=== PATIENT | male | born 1950 | race Caucasian/White ===

== ENCOUNTER 2024-03-09 17:17 | Emergency (ER) | payer OTHER ==
[2024-03-09] MEDS ORDERED: MORPHINE 4 MG/ML SYR ONE (18:28)
[2024-03-09] MEDS ORDERED: TRANEXAMIC ACID 1,000 MG/10 ML VIAL IV ONE ×2 (18:29→18:38)
[2024-03-09 18:40] LABS: Absolute Basophils 0.1 K/uL (0-0.5); Absolute Eosinophils 0.2 K/uL (0-0.5); Absolute Lymphocytes (CBC) 2.1 K/uL (0.7-4.9); Absolute Monocytes 0.6 K/uL (0.1-1.3); Absolute Neutrophil 3.8 K/uL (1.8-8.0); Basophils % 1.1 % (0-1.3); Eosinophils % 2.2 % (0-4.4); Hematocrit 43.1 % (39.6-49.0); MCH 27.7 pg (27.0-35.0); MCHC 32.5 g/dL (32.0-36.0); MCV 85.2 fL (80-100); MPV 9.6 fL (7.6-11.3); Monocytes % 9.5 % (3.3-12.3); Neutrophils % 56.2 % (41.7-73.7); Nucleated Red Blood Cells % 0.1 % (0-0); Platelets 186 thou/uL (152-406); RBC Red Blood Cell Count 5.06 M/uL (4.33-5.43); Red Cell Distribution Width 15.3 % (12.1-15.2)
[2024-03-09] MEDS ORDERED: SILVER NITRATE 1 APPL TOP ONE (18:44)
[2024-03-09 18:55] LABS: Anion Gap 5.1 mEq/L (5.0-15.0); Potassium 4.1 mEq/L (3.5-5.1)
--- NOTE | 2024-03-09 18:59 | ER ---
Nurse's Notes [facility] Name: Alfonso Calabrese Age: 74 yrs Sex: Male : 1950 Arrival Date: 03/09/2024 Time: 17:17 Bed 10 Private MD: Diagnosis: FACIAL WOUND BLEEDING Presentation: 03/09 17:30 Chief complaint: Patient states: pt had some skin cancer removed from his face asSaturday and today it started bleeding and they haven't been able to get it to stop. Coronavirus screen: At this time, the client does not indicate any symptoms associated with coronavirus-19. Ebola Screen: No symptoms or risks identified at this time. Initial Sepsis Screen: Does the patient meet any 2 criteria? No. Patient's initial sepsis screen is negative. Does the patient have a suspected source of infection? No. Patient's initial sepsis screen is negative. Risk Assessment: Do you want to hurt yourself or someone else? Patient reports no desire to harm self or others. Onset of symptoms was March 09, 2024. 17:30 Method Of Arrival: Wheelchair as6 17:30 Acuity: JANET 2 aa5 Historical: - Allergies: 17:31 No Known Allergies; as6 - PMHx: 17:31 Cerebrovascular accident; as6 - PSHx: 17:31 hip; Stented artery; as6 - Immunization history:: Adult Immunizations up to date. - Infectious Disease History:: Denies. - Social history:: Smoking status: Reported history of juuling and/or vaping. Screenin:34 [facility] ED Fall Risk Assessment (Adult) History of falling in the last 3 months, me1 including since admission No falls in past 3 months (0 pts) Confusion or Disorientation No (0 pts) Intoxicated or Sedated No (0 pts) Impaired Gait Yes (1 pt) Mobility Assist Device Used Yes (1 pt) Altered Elimination No (0 pt) Score/Fall Risk Level 0 - 2 = Low Risk Maintained a safe environment, Provided non-skid footwear, Hourly rounding (assess needs \T\ fall precautionary measures) done. Abuse screen: Denies threats or abuse. Nutritional screening: No deficits noted. Tuberculosis screening: No symptoms or risk factors identified. Assessment: 18:34 General: Appears uncomfortable, well groomed, well developed, well nourished, Behavior me1 is calm, cooperative, appropriate for age, had skin cancer removed from right face on Saturday and it started bleeding today. Cant get the bleeding to stop. . Pain: Complains of pain in right cheek Pain does not radiate. Pain currently is 10 out of 10 on a pain scale. Quality of pain is described as sharp, Pain began gradually, day Is continuous. Neuro: Level of Consciousness is awake, alert, obeys commands, Oriented to person, place, time, situation, Appropriate for age. Cardiovascular: Capillary refill < 3 seconds Patient's skin is warm and dry. Respiratory: Airway is patent Respiratory effort is even, unlabored, Respiratory pattern is regular, symmetrical. GI: No signs and/or symptoms were reported involving the gastrointestinal system. : No signs and/or symptoms were reported regarding the genitourinary system. EENT: No signs and/or symptoms were reported regarding the EENT system. Derm: Wound noted right cheek Wound is surgical wound. Skin cancer removed on Saturday. Musculoskeletal: No signs and/or symptoms reported regarding the musculoskeletal system. Vital Signs: 17:30 BP 137 / 96; Pulse 64; Resp 18 S; Temp 98.4; Pulse Ox 96% on R/A; Weight 107.05 kg (R); as6 Height 6 ft. 2 in. (R); Pain 0/10; 18:15 BP 168 / 88; Pulse 67; Resp 18; Pulse Ox 97% on R/A; me1 18:58 BP 169 / 92; Pulse 61; Resp 18; Pulse Ox 100% on R/A; me1 19:15 BP 161 / 83; Pulse 59; Resp 16; Pulse Ox 96% on R/A; me1 17:30 Body Mass Index 30.30 (107.05 kg, 187.96 cm) as6 17:30 Pain Scale: Adult as6 ED Course: 17:18 Patient arrived in ED. mr 17:26 Arcelia Louie MD is Attending Physician. gb1 17:30 Arm band placed on. as6 17:31 Triage completed. as6 17:38 Caro Walker, RN is Primary Nurse. me1 18:32 CBC with Diff Sent. me1 18:32 BMP Sent. me1 18:33 Initial lab(s) drawn, by me, sent to lab. Inserted saline lock: 20 gauge in left me1 antecubital area, using aseptic technique. 18:34 Patient has correct armband on for positive identification. Bed in low position. Call tx1 light in reach. Side rails up X 1. Provided Education on: POC. Verbalized understanding. . Client placed on continuous cardiac and pulse oximetry monitoring. NIBP monitoring applied. Pulse ox on. NIBP on. 18:34 No provider procedures requiring assistance completed. me1 19:25 IV discontinued, intact, bleeding controlled, No redness/swelling at site. Pressure tx1 dressing applied. Administered Medications: 18:33 Drug: morphine IVP or IV 4 mg IVP once over 4 mins Route: IVP; Infused Over: 4 mins; tx1 Site: left antecubital; 18:58 Follow up: Response: No adverse reaction; Pain is decreased me1 18:33 Drug: morphine IVP or IV 4 mg IVP once over 4 mins Route: IVP; Infused Over: 4 mins; tx1 Site: left antecubital; 18:58 Follow up: Response: No adverse reaction; Pain is decreased me1 18:58 Drug: tranexamic acid 2 vials Topical once; to wound {Note: Administered by Dr reji Louie.} Route: Topical; Site: face; 18:59 Follow up: Response: No adverse reaction; Marked relief of symptoms me1 19:08 Not Given (Hemodynamic Parameters): silver nitrate applicators1 application Topical oncegb1 Medication: 18:34 VIS not applicable for this client. me1 Outcome: 18:58 Discharge ordered by . gb1 19:25 Discharged to home ambulatory, with family, me1 19:25 Condition: stable 19:25 Discharge instructions given to patient, family, Instructed on discharge instructions, follow up and referral plans. Demonstrated understanding of instructions, follow-up care, 19:25 Patient left the ED. me1 Signatures: Adriana Crews, Ezra Reg mr Harleen Mcadams, RN RN [id number] Mike Dockery RN RN as6 Caro Walker RN RN 1 Arcelia Louie MD MD gb1 Corrections: (The following items were deleted from the chart) 18:16 17:30 Acuity: JANET 4 as6 aa5 18:57 17:30 Acuity: JANET 3 aa5 aa5 18:59 18:59 Silver Nitrate Applicators Topical 1 application Topical in face tx1 [facility] [place] 18:59 Silver Nitrate Applicators Topical 1 application Topical in face; Administered by emelyn Louie [facility] [place] 18:59 Response: No adverse reaction; Marked relief of symptoms tx1 emelyn
--- NOTE | 2024-03-09 18:59 | EDPHYS ---
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 Today when he was doing nothing it started to bleed has been no trauma to the surgical area. His surgeon is at the [facility] in [place]. The patient is set to be evaluated for a flap procedure on at the [facility]. The wound is still actively bleeding in the lower right hand section of the wound.. Historical: - Allergies: 17:31 No Known Allergies; as6 - PMHx: 17:31 Cerebrovascular accident; as6 - PSHx: 17:31 hip; Stented artery; as6 - Immunization history:: Adult Immunizations up to date. - Infectious Disease History:: Denies. - Social history:: Smoking status: Reported history of juuling and/or vaping. Exam: 19:01 Constitutional: This is a well developed, well nourished patient who is awake, alert, gb1 and in no acute distress. Head/Face: There is a large 2 inch x 2-1/2 inch open wound to the right buccal area. There is an active slow venous bleed from an area of tissue/wound dehiscence. There is no sign of erythema or fluctuance or induration at the wound site. Eyes: Pupils equal round and reactive to light, extra-ocular motions intact. Lids and lashes normal. Conjunctiva and sclera are non-icteric and not injected. Cornea within normal limits. Periorbital areas with no swelling, redness, or edema. ENT: Nares patent. No nasal discharge, no septal abnormalities noted. Tympanic membranes are normal and external auditory canals are clear. Oropharynx with no redness, swelling, or masses, exudates, or evidence of obstruction, uvula midline. Mucous membranes moist. Neck: Trachea midline, no thyromegaly or masses palpated, and no cervical lymphadenopathy. Supple, full range of motion without nuchal rigidity, or vertebral point tenderness. No Meningismus. Chest/axilla: Normal chest wall appearance and motion. Nontender with no deformity. No lesions are appreciated. Cardiovascular: Regular rate and rhythm with a normal S1 and S2. No gallops, murmurs, or rubs. Normal PMI, no JVD. No pulse deficits. Respiratory: Lungs have equal breath sounds bilaterally, clear to auscultation and percussion. No rales, rhonchi or wheezes noted. No increased work of breathing, no retractions or nasal flaring. Abdomen/GI: Soft, non-tender, with normal bowel sounds. No distension or tympany. No guarding or rebound. No evidence of tenderness throughout. MS/ Extremity: Pulses equal, no cyanosis. Neurovascular intact. Full, normal range of motion. Vital Signs: 17:30 BP 137 / 96; Pulse 64; Resp 18 S; Temp 98.4; Pulse Ox 96% on R/A; Weight 107.05 kg (R); as6 Height 6 ft. 2 in. (R); Pain 0/10; 18:15 BP 168 / 88; Pulse 67; Resp 18; Pulse Ox 97% on R/A; me1 18:58 BP 169 / 92; Pulse 61; Resp 18; Pulse Ox 100% on R/A; me1 19:15 BP 161 / 83; Pulse 59; Resp 16; Pulse Ox 96% on R/A; me1 17:30 Body Mass Index 30.30 (107.05 kg, 187.96 cm) as6 17:30 Pain Scale: Adult as6 MDM: 17:33 Patient medically screened. gb1 19:01 Differential diagnosis: Wound dehiscence, venous facial BLEED. Data reviewed: vital gb1 signs, nurses notes. ED course: 74-year-old male status post basal cell carcinoma removal from the right buccal area. The area of dehiscence/venous bleed has been evaluated by me. Initially tried to obtain cessation of bleeding by using Surgicel which was unsuccessful. The bleeding was cessation did result from Surgicel with mild to moderate pressure to the venous bleeding site. We did obtain hemostasis. The Surgicel was left in place for 30 minutes and was checked and rechecked and I have recommended the patient follow-up with his surgeon of record at the [facility] tomorrow. He does have a standing appointment to see the dermatology logical surgeon on to evaluate the wound for flap repair. The patient's hemoglobin hematocrit is stable at this time.. 03/09 18:16 Order name: CBC with Diff; Complete Time: 18:56 gb1 03/09 18:16 Order name: BMP; Complete Time: 18:56 gb1 03/09 18:16 Order name: IV Saline Lock; Complete Time: 18:32 gb1 03/09 18:16 Order name: Labs collected and sent; Complete Time: 18:32 gb1 03/09 19:00 Order name: Misc. Order: surgicel to wound; Complete Time: 19:00 aa5 Administered Medications: 18:33 Drug: morphine IVP or IV 4 mg IVP once over 4 mins Route: IVP; Infused Over: 4 mins; me1 Site: left antecubital; 18:58 Follow up: Response: No adverse reaction; Pain is decreased me1 18:33 Drug: morphine IVP or IV 4 mg IVP once over 4 mins Route: IVP; Infused Over: 4 mins; me1 Site: left antecubital; 18:58 Follow up: Response: No adverse reaction; Pain is decreased me1 18:58 Drug: tranexamic acid 2 vials Topical once; to wound {Note: Administered by Dr reji Louie.} Route: Topical; Site: face; 18:59 Follow up: Response: No adverse reaction; Marked relief of symptoms me1 19:08 Not Given (Hemodynamic Parameters): silver nitrate applicators1 application Topical oncegb1 Disposition Summary: 03/09/24 18:58 Discharge Ordered Notes: Location: Home gb1 Problem: new gb1 Symptoms: have improved gb1 Condition: Stable gb1 Diagnosis - FACIAL WOUND BLEEDING gb1 Followup: gb1 - With: Private Physician - When: - Reason: Continuance of care Discharge Instructions: - Discharge Summary Sheet gb1 - Wound Dehiscence, [id number] gb1 Forms: - Medication Reconciliation Form gb1 - Antibiotic Education gb1 - Prescription Opioid Use gb1 - Patient Portal Instructions gb1 - Leadership Thank You Letter gb1 Signatures: Dispatcher [employer] Harleen Merrill RN RN [id number] Mike Dockery RN RN as6 Caro Walker RN RN me1 Blocker, Gina, MD MD gb1 Corrections: (The following items were deleted from the chart) 18:16 18:16 CBC+H.LAB.BRZ ordered. EDMS EDMS 18:16 18:16 BASIC METABOLIC PANEL+C.LAB.BRZ ordered. EDMS EDMS 19:07 19:01 ED course: 74-year-old male status post basal cell carcinoma removal from the gb1 right buccal area. The area of dehiscence/venous bleed has been evaluated by me. Initially tried to obtain cessation of bleeding by using Surgicel which was unsuccessful. The bleeding was cessation did result from Surgicel with mild to moderate pressure to the venous bleeding site. We did obtain hemostasis. The Surgicel was left in place for 30 minutes and was checked and rechecked and I have recommended the patient follow-up with his surgeon of record at the [facility] tomorrow. He does have a standing appointment to see the dermatology logical surgeon on to evaluate the wound for flap repair.. gb1
[2024-03-09 19:57] VITALS: BP 161/83; TEMP 98.4; O2SAT 96
== END 2024-03-09 19:25 | disposition home or self-care (01) ==
LOC: ER 17:17 → EDBD 17:17 → ER 19:25
DX: L76.21 Postprocedural hemorrhage of skin and subcutaneous tissue following a dermatologic procedure (principal); Z85.828 Personal history of other malignant neoplasm of skin
CPT/HCPCS: 36415; 80048; 85025; 96374; 99284